=== PATIENT | female | born 1940 | race African-American/Black ===

== ENCOUNTER 2016-09-29 07:13 | Observation (INO) ==
[~2016-09-29 07:13] MED LIST: SODIUM CHLORIDE 0.45% 1,000 ML IV SCH
[2016-09-29] MEDS ORDERED: MIDAZOLAM 2 MG/2 ML VIAL IV ONE (07:40)
[2016-09-29 07:53] LABS: Basophils % 0.3 % (0.0-0.8); Eosinophils # 0.1 10*3/uL (0.0-0.87); Eosinophils % 1.7 % (0.00-10.9); Hematocrit 43.5 VOL% (35.7-47.0); Hemoglobin 15.2 GM/DL (12.0-16.0); Immature Granulocytes % 0.3 %; Immature Granulocytes Absolute 0.01 #; Lymphocytes # 1.5 10*3/uL (1.4-4.0); Lymphocytes % 43.1 % (21.3-54.2); Mean Corpuscular HGB Conc 34.9 GM/DL (32-36); Mean Corpuscular Hemoglobin 29 PG (27-34); Mean Corpuscular Volume 81.8 FL (87-102); Mean Platelet Volume 11.4 FL (9.6-12.0); Monocytes # 0.5 10*3/uL (0.11-0.8); Monocytes % 14.4 % (1.7-12.7); Neutrophils # 1.4 10*3/uL (1.4-7.4); Neutrophils % 40.2 % (38.7-73.9); Platelet Count 199 T/CUMM (130-400); Red Blood Count 5.32 MC/CUMM (3.8-5.5); Red Cell Distribution Width 12.9 % (9.3-17.3); White Blood Count 3.5 T/CUMM (4-12)
[2016-09-29 08:03] LABS: PT Patient Result 10.7 SECS
[2016-09-29] MEDS ORDERED: fentaNYL 100 MCG/2 ML VIAL IV ONE (08:15)
[2016-09-29] MEDS ORDERED: DIAZEPAM 5 MG TABLET PO ONE (08:59)
--- NOTE | 2016-09-29 09:00 | IR History and Physical Update ---
IR Pre-Procedure - History and Physical H&P was reviewed, the patient examined and there: are no changes in the patients condition since last H&P was completed. Reason for procedure:: right renal lesion possible carcinoma - Dictation Physical: refer to scanned H&P - Physical Exam Vital Signs: Last Vital Signs Temp 97.1 F L 09/29/16 07:51 Pulse 55 L 09/29/16 07:51 Resp 20 09/29/16 07:51 BP 139/90 09/29/16 07:51 Pulse Ox 100 09/29/16 07:51 Mental Status: alert and oriented Heart: regular rate and rhythm Lung: clear to auscultation Abdomen: within normal limits - Sedation IR anesthesia plan for sedation: none ASA Class: II Airway Assessment: Class III: Soft palate, base of uvula visible - Risks Risks: Procedures explained. Risks discussed include, but not limited to, the following:[ bleeding, infection, injury to adjacent strucutres] All questions answered. The following alternatives were discussed:[ none] Risks and benefits discussed with: patient Consent obtained from: patient Assessment and Plan - Time spent with patient Time spent with patient: Less than 30 minutes
[2016-09-29] MEDS ORDERED: DIAZEPAM 5 MG TABLET ONE (09:17)
[2016-09-29] MEDS ORDERED: MORPHINE 2 MG/1 ML SYRINGE IV STA ×2 (12:59→13:32)
[2016-09-29] MEDS ORDERED: ONDANSETRON 4 MG/2 ML VIAL IV STA (13:00)
[2016-09-29] MEDS ORDERED: MORPHINE 10 MG/1 ML VIAL ONE (13:01)
[2016-09-29 13:51] LABS: Hematocrit 37.3 VOL% (35.7-47.0); Hemoglobin 12.9 GM/DL (12.0-16.0)
--- NOTE | 2016-09-29 13:55 | Post Interventional Procedure ---
Pre-op diagnosis: right renal complex cyst/mass Post-op diagnosis: same Procedure: CT guided renal mass biopsy Contrast: none Flouroscopy: none Radiologist: Pawel Cadena Anesthesia: local Specimens: other (three 18 ga cores sent to path) Estimated blood loss: minimal (less than 5 mL) Complications: none Condition: stable Description/Findings: complex partially calcified lesion in the right kidney was targeted for biopsy 3 cores obtained and no significant bleeding following the biopsy patient tolerated well Assessment and Plan - Time spent with patient Time spent with patient: Less than 30 minutes
--- NOTE | 2016-09-29 13:56 | Event Note ---
patient having some increasing pain and nausea - treated with meds but not improving yet waiting on stat H/H and will rescan if needed
--- NOTE | 2016-09-29 14:00 | CT Report ---
CT biopsy renal RT Clinical Information: Complex renal cyst/mass right kidney Physician: Dr. Cadena Technique: Informed consent was obtained from the patient. Full explanation of the nature of the procedure, alternatives and risks were discussed, including risks of bleeding, infection and potential inability to diagnose with needle technique. Adjacent vascular and organ injury were also fully discussed. She expressed understanding and a desire to proceed. Formal timeouts were performed, per protocol. Local anesthesia only was used for the procedure. The partially calcified solid appearing mass within the lower pole the right kidney wasn't visualized on the CT guided localization of the target lesion was performed. Under real time guidance, 3 total core biopsies were obtained using an 18-gauge system and submitted in formalin. Follow-up imaging demonstrated no evidence of pneumothorax, hemorrhage or other immediate complication. Estimated blood loss less than 5 cc. Total number of images for this study: 121 Conclusion: Technically successful CT guided right renal lesion biopsy as detailed above PROCEDURE INTERPRETED AT [facility], [place] DEPARTMENT OF RADIOLOGY Final Report Signed by: Paewl Cadena
[2016-09-29] MEDS ORDERED: HYDROmorphone 2 MG/1 ML VIAL IV PRN (14:56)
[2016-09-29] MEDS ORDERED: ONDANSETRON 4 MG/2 ML VIAL IV ONE (14:57)
[2016-09-29] MEDS ORDERED: HYDROmorphone 2 MG/1 ML VIAL ONE (15:24)
[2016-09-29] MEDS ORDERED: ONDANSETRON 4 MG/2 ML VIAL ONE (15:24)
[2016-09-29] MEDS: HYDROmorphone 2 MG/1 ML VIAL IV PRN (15:35)
[2016-09-29] MEDS: SODIUM CHLORIDE 0.45% 1,000 ML IV SCH (15:45)
[2016-09-29] MEDS ORDERED: DEXTROSE 50% 25 GM/50 ML SYRINGE IV PRN (15:47)
[2016-09-29] MEDS ORDERED: GLUCAGON 1 MG VIAL IM PRN (15:47)
--- NOTE | 2016-09-29 16:00 | CT Report ---
CT abdomen wo con Indication: Right flank pain following right renal lesion biopsy Comparison: CT images from the biopsy dated 09/29/2016 at 10:30 AM. Technique: CT of the abdomen was performed without administration of intravenous contrast. Coronal and sagittal reformatted images were additionally created and submitted for review. The total DLP is 146.2 mGy*cm. Dose reduction: This CT exam was performed using one or more of the following dose reduction techniques: Automated exposure control, automated adjustment of the mA and/or KV according to patient size, or use of iterative reconstruction technique. Findings: Minimal posterior basilar atelectatic changes are noted bilaterally. No significant pleural or pericardial effusion. ABDOMEN: Liver/Gallbladder: Unenhanced appearances within normal limits. No biliary ductal dilatation. No gallstones. Cholecystectomy clips noted. Spleen: No acute findings. Pancreas: No acute findings. Adrenals: Within normal limits in appearance. Kidneys: Partially calcified lesion within the inferior pole the right kidney is again noted. There is minimal stranding within the right retroperitoneal/perirenal fat, consistent with a very mild degree of postbiopsy hemorrhage. Additionally, there is slight dilatation of the right renal collecting system and proximal ureter when compared to the prior studies, which is nonspecific on this noncontrast-enhanced study but may represent minimal bleeding into the collecting system. Left kidney appears grossly unremarkable with renal cortical irregularity likely from scarring but no hydronephrosis. Bowel/mesentery: Small bowel is nondilated. No free fluid/air within the abdomen. No mesenteric adenopathy. Colon appears grossly unremarkable for noncontrasted study. Retroperitoneum: No evidence of aortic aneurysm. Minimal scattered atherosclerotic plaque. BONES: No acute or suspicious osseous abnormalities are identified. Mild degenerative changes noted. IMPRESSION: 1. Postbiopsy changes are suspected about the right kidney with minimal perirenal/perinephric stranding likely representing a minimal degree of postbiopsy hemorrhage. There is no significant perirenal hematoma.. Also noted is mild dilatation of the right renal collecting system and proximal right ureter which appears new and may be related to hemorrhage into the collecting system and along the ureter. This will be assessed clinically. 2. No other acute abnormality in the abdomen. 09/29/2016 3:52 PM PROCEDURE INTERPRETED AT [facility] [place] DEPARTMENT OF RADIOLOGY Final Report Signed by: Pawel Cadena
--- NOTE | 2016-09-29 17:33 | Event Note ---
small drop in H/H with some hematuria which is common after renal biopsy - will continue to watch this over night and repeat CBC in AM slight improvement in pain control on dilaudid - will continue overnight C/S to Hospital medicine for assistance with diabetes, hypertension and other medical issues
--- NOTE | 2016-09-29 17:47 | Hospitalist Consult Note ---
<Neo Razo - Last Filed: 09/29/16 17:58> Assessment and Plan (1) Diabetes Status: Acute Assessment and plan: accuchecks achs. ssi. hbg a1c in am. Current Visit: No (2) Hypertension Status: Acute Assessment and plan: Monitor blood pressure. Current Visit: No (3) Nausea Status: Acute Assessment and plan: prn zofran. Current Visit: No History of Present Illness - Data of Consult Consult date: 09/29/16 - Consult Narrative Reason for consult: medical management History of present illness: Ms. Alonzo is a 76 year old black female with a history of dm and dylipidemia that presented today for a biopsy of renal cysts. This biopsy was performed by Dr. Cadena. Pt. tolerated the procedure well but post procedure pt has been having issues with pain, nausea, and vomiting. Hospitalist service was consulted to manage patient medically overnight. Pt. was seen and examined with patient's daughter present at the bedside. Labs and chart reviewed. Presently, pt denies pain but is still nauseous and has experienced vomiting. Pt. is hypertensive also. Pt. will be given zofran IV for management. We will also initiate SSI and accuchecks for diabetes. We appreciate your consult and we will follow along with you. CC: Pawel Cadena MD - Home Medications and Allergies Home Medications: Home Medications Medication Instructions Recorded Confirmed Type Donepezil [Aricept] 10 mg PO DAILY 04/18/15 09/29/16 History Simvastatin [Zocor] 20 mg PO DAILY 04/18/15 09/29/16 History Memantine [Namenda] 10 mg PO BEDTIME 09/17/16 09/29/16 History Omeprazole [Prilosec] 20 mg PO DAILY 09/17/16 09/29/16 History Rosiglitazone Maleate [Avandia] 4 mg PO DAILY 09/17/16 09/29/16 History Simethicone [Bicarsim] 80 mg PO DIRECTED PRN 09/17/16 09/29/16 History Sitagliptin Phosphate [Januvia] 50 mg PO DAILY 09/17/16 09/29/16 History Allergies/Adverse Reactions: Allergies Allergy/AdvReac Type Severity Reaction Status Date / Time Iodinated Contrast Media - AdvReac Intermediate Syncope/Wea Verified 09/29/16 07 :34 Oral and kness [Iodinated Contrast Media - IV Dye] Medical,Surgical,& Family Hx - Medical History Neurology: History of: Dementia No history of: Seizures HEENT: History of: Eye Problem, Dental Problems Endocrine: History of: Diabetes Mellitus (NIDDM) Renal: History of: Renal Problems (Renal Cyst) Gastrointestinal: History of: GI Problems (renal cysts) - Surgical History Abdominal Surgeries: Surgical HX of: Abdominal Surgery, Cholecystectomy Reproductive Surgeries: Surgical HX of;: Section, Gynecologic Surgery, Hysterectomy - Family History Family History: Reports;: Family Hypertension (SISTER) - Social History Smoking Status: Never smoker Frequency of Alcohol Use: None Type of Drug Use: None Lives With:: Children Functional capacity: independent ambulation - Constitutional Constitutional: Present: weakness. Absent: chills, fever(s) - EENT Eyes: Absent: requires corrective lense Ears: Present: decreased hearing. Absent: ear discharge Nose, mouth and throat: Absent: headache(s) - Cardiovascular Cardiovascular: Absent: chest pain at rest, dyspnea on exertion, edema - Respiratory Respiratory: Absent: cough, dyspnea - Gastrointestinal Gastrointestinal: Present: abdominal pain, nausea, vomiting - Genitourinary Genitourinary: Absent: difficulty urinating - Neurological Neurological: Present: memory loss. Absent: dizziness - Psychiatric Psychiatric: Present: memory loss. Absent: confusion - Endocrine Endocrine: Present: fatigue. Absent: cold intolerance - Hematologic/Lymphatic Hematologic/Lymphatic: Absent: easy bleeding Exam - Constitutional Vitals: Period Temp Pulse Resp BP Sys/Calvillo Pulse Ox Last 24 Hr 97.1 F-97.2 F 45-59 12-21 120-178/77-98 99-100 General appearance: normal weight, no acute distress - Head Head exam: Present: normal inspection, normocephalic - Eye Eye exam: Present: EOMI Pupils: Present: JOY - Respiratory Respiratory exam: Present: clear to auscultation bilaterally. Absent: wheezes - Cardiovascular Cardiovascular exam: Present: regular rate and rhythm - GI/Abdominal GI/Abdominal exam: Present: normal bowel sounds, tenderness, soft - Extremities Exam Extremities exam: Present: normal capillary refill. Absent: edema - Neurological Exam Neurological exam: Present: alert, oriented X3 - Psychiatric Psychiatric exam: Present: normal affect, normal mood - Skin Skin exam: Present: normal color, warm, dry Results - Labs CBC & BMP: 09/29/16 13:00 Specialty Discharge - Follow Up or Referrals <Jennifer Barrett - Last Filed: 09/29/16 18:48> Assessment and Plan (1) Renal mass Status: Acute Assessment and plan: s/p right kidney biopsy, monitor hgb for post biopsy hemorrhage Current Visit: Yes (2) Hypertension Status: Acute Current Visit: No (3) Diabetes Status: Acute Current Visit: No History of Present Illness - Consult Narrative History of present illness: Ms. Alonzo is a 76 year old female patient seen and examined. Reporting pain over bladder, feels full will ask nursing to insert melgoza. Family will stay overnight. no history of htn CC: Pawel Cadena MD Medical,Surgical,& Family Hx - Social History Marital Status: Single Exam - Constitutional Vitals: Period Temp Pulse Resp BP Sys/Calvillo Pulse Ox Last 24 Hr 97.1 F-97.2 F 45-59 12-21 120-178/77-98 99-100 - Eye Eye exam: Absent: scleral icterus Pupils: Present: normal accommodation - ENT ENT exam: Present: normal exam, normal external ear exam - Neck Neck exam: Absent: lymphadenopathy, thyromegaly - Cardiovascular Cardiovascular exam: Absent: systolic murmur - Neurological Exam Neurological exam: Present: reflexes normal. Absent: motor sensory deficit Results - Labs CBC & BMP: 09/29/16 13:00 Lab Results: I have reviewed the past 24 hour labs - Diagnostic Findings Procedure: CT Abdomen and Pelvis: report reviewed by me ( Postbiopsy changes are suspected about the right kidney with)
[2016-09-29 19:21] LABS: Apearance,Urine CLOUDY (Clear); Bilirubin,Urine Negative (Negative); Blood, Urine Moderate mg/dL (Negative); Glucose,Urine (UA) 50 mg/dL (Negative); Ketones,Urine Negative (Negative); Nitrite,Urine Negative (Negative); Protein,Urine 100 MG/DL; RBC,Urine 6947 /HPF (0-4); Urine Color Amber (Yellow); Urine Urobilinogen < 2.0 EU/DL (0.2-1.0)
[2016-09-29] MEDS ORDERED: MEMANTINE 10 MG TABLET PO SCH (21:00)
[2016-09-29] MEDS: INSULIN LISPRO 100 UNIT/ML SUBCUT SCH (21:06)
[2016-09-30] MEDS: HYDROmorphone 2 MG/1 ML VIAL IV PRN (00:16)
[2016-09-30] MEDS: ONDANSETRON 4 MG/2 ML VIAL IV PRN ×2 (00:16→11:34)
[2016-09-30] MEDS ORDERED: HYDROmorphone 2 MG/1 ML VIAL IV ONE (02:37)
[2016-09-30] MEDS: SODIUM CHLORIDE 0.45% 1,000 ML IV SCH (05:12)
[2016-09-30 07:32] LABS: Basophils % 0.2 % (0.0-0.8); Eosinophils % 0.2 % (0.00-10.9); Hematocrit 40.2 VOL% (35.7-47.0); Immature Granulocytes % 0.3 %; Immature Granulocytes Absolute 0.02 #; Lymphocytes # 0.6 10*3/uL (1.4-4.0); Lymphocytes % 9.5 % (21.3-54.2); Mean Corpuscular HGB Conc 34.8 GM/DL (32-36); Mean Corpuscular Hemoglobin 29 PG (27-34); Mean Platelet Volume 12.7 FL (9.6-12.0); Monocytes # 0.5 10*3/uL (0.11-0.8); Monocytes % 8.2 % (1.7-12.7); Neutrophils # 5.4 10*3/uL (1.4-7.4); Neutrophils % 81.6 % (38.7-73.9); Platelet Count 174 T/CUMM (130-400); Red Cell Distribution Width 12.8 % (9.3-17.3); White Blood Count 6.6 T/CUMM (4-12)
[2016-09-30 07:54] LABS: Hypochromasia Slight
[2016-09-30 08:00] LABS: Potassium 4.7 MMOL/L (3.5-5.1)
--- NOTE | 2016-09-30 08:30 | Discharge Summary ---
Hospital Course - Hospital Course Hospital Course: Ms. Alonzo was seen on 09/29/2016 for biopsy of a right renal mass. Following the biopsy, she developed significant pain with nausea vomiting and abdominal discomfort. Follow-up imaging and lab work demonstrates minimal bleeding, likely within the collecting system with some hematuria noted. This resolved and she otherwise did well with overnight pain control and Matute catheter placement. It seems like today she is much better spirits with limited pain. She has not been requesting significant pain medicine overnight. Of note, there is bloody urine within the Matute bag with several clots but the urine is otherwise not discolored. We will remove the Matute catheter today and see if she progresses well, she will likely be discharged this afternoon. She has primary care follow up and hospitalist will potentially set of outpatient physical therapy for rehabilitation. She also has follow-up with Dr. Steele pending the results of the renal mass biopsy. Patient was counseled to continue light duty for 2 additional base. Hold aspirin for at least 48 hours. No other home medication changes. - Time spent with patient Time with patient DS: Less than 30 minutes Specialty Discharge - Follow Up or Referrals Discharge Plan - Discharge Data Disposition: Disch To Home/Self Care Condition at Discharge: Stable Discharge Diet: advance to your usual diet Activity: resume usual activities as tolerated Hygiene: may shower Weight Bearing at Discharge: full weight bearing Driving: not for (24 hours) Contact your physician if you experience:: fever over 101, Difficulty voiding, Nausea/Vomiting, Bleeding, pain uncontrolled by pain medications - Discharge Medications No Action Donepezil [Aricept] 10 mg PO DAILY Simvastatin [Zocor] 20 mg PO DAILY Memantine [Namenda] 10 mg PO BEDTIME Rosiglitazone Maleate [Avandia] 4 mg PO DAILY Omeprazole [Prilosec] 20 mg PO DAILY Simethicone [Bicarsim] 80 mg PO DIRECTED PRN PRN Reason: Pain Sitagliptin Phosphate [Januvia] 50 mg PO DAILY - Follow Up or Referral - Forms/Instructions Instructions: Percutaneous Kidney Biopsy (ANA LUISA), Ron Biopsy by Radiology Exam - Constitutional Vitals: Period Temp Pulse Resp BP Sys/Calvillo Pulse Ox Last 24 Hr 97.1 F-97.8 F 45-62 12-21 119-178/71-98 94-100 General appearance: normal weight - Eye Eye exam: Present: EOMI - Respiratory Respiratory exam: Present: clear to auscultation bilaterally - Cardiovascular Cardiovascular exam: Present: regular rate and rhythm - GI/Abdominal GI/Abdominal exam: Present: normal bowel sounds. Absent: distended, firm, guarding - Back Exam Back exam: Absent: CVA tenderness (L), CVA tenderness (R) - Neurological Exam Neurological exam: Present: alert, oriented X3 - Psychiatric Psychiatric exam: Present: normal affect, normal mood - Skin Skin exam: Present: normal color, dry Discharge Results Procedures and tests throughout hospitalization: Pending Orders 09/30/16 04:56 Hemoglobin A1C IN AM Labs on day of discharge: Labs from last 24 hours 09/30/16 09/30/16 09/30/16 08:12 04:56 04:56 WBC 6.6 D RBC 4.90 Hgb 14.0 Hct 40.2 MCV 82.0 L MCH 29 MCHC 34.8 RDW 12.8 Plt Count 174 MPV 12.7 H Neut % (Auto) 81.6 H Lymph % (Auto) 9.5 L [place] % (Auto) 8.2 Eos % (Auto) 0.2 Baso % (Auto) 0.2 Neut # (Auto) 5.4 Lymph # (Auto) 0.6 L [place] # (Auto) 0.5 Eos # (Auto) 0.0 Baso # (Auto) 0.0 Immature Gran % 0.3 Nucleated RBC % 0.0 Immature Gran # 0.02 Nucleated RBCs # 0.00 Immature Plt Fraction 6.3 Hypochromasia Slight Sodium 136 Potassium 4.7 Chloride 104 Carbon Dioxide 24 Anion Gap 12.7 BUN 14 Creatinine 1.30 H GFR Calculation 47 BUN/Creatinine Ratio 10.00 Glucose 169 H POC Glucose 147 H Calculated Osmolality 276.0 Calcium 9.0 Urine Color Urine Appearance Urine pH Ur Specific [place] Urine Protein Urine Glucose (UA) Urine Ketones Urine Blood Urine Nitrate Urine Bilirubin Urine Urobilinogen Urine Leukocytes Urine RBC Ur Culture Indicated? 09/29/16 09/29/16 09/29/16 19:46 19:33 18:36 WBC RBC Hgb 15.5 D Hct MCV MCH MCHC RDW Plt Count MPV Neut % (Auto) Lymph % (Auto) [place] % (Auto) Eos % (Auto) Baso % (Auto) Neut # (Auto) Lymph # (Auto) [place] # (Auto) Eos # (Auto) Baso # (Auto) Immature Gran % Nucleated RBC % Immature Gran # Nucleated RBCs # Immature Plt Fraction Hypochromasia Sodium Potassium Chloride Carbon Dioxide Anion Gap BUN Creatinine GFR Calculation BUN/Creatinine Ratio Glucose POC Glucose 167 H Calculated Osmolality Calcium Urine Color Silvia Urine Appearance Cloudy Urine pH 6.0 Ur Specific [place] 1.010 Urine Protein 100 Urine Glucose (UA) 50 Urine Ketones Negative Urine Blood Moderate Urine Nitrate Negative Urine Bilirubin Negative Urine Urobilinogen < 2.0 H Urine Leukocytes Negative Urine RBC 6947 Ur Culture Indicated? Not indicated 09/29/16 09/29/16 16:16 13:00 WBC RBC Hgb 12.9 D Hct 37.3 MCV MCH MCHC RDW Plt Count MPV Neut % (Auto) Lymph % (Auto) [place] % (Auto) Eos % (Auto) Baso % (Auto) Neut # (Auto) Lymph # (Auto) [place] # (Auto) Eos # (Auto) Baso # (Auto) Immature Gran % Nucleated RBC % Immature Gran # Nucleated RBCs # Immature Plt Fraction Hypochromasia Sodium Potassium Chloride Carbon Dioxide Anion Gap BUN Creatinine GFR Calculation BUN/Creatinine Ratio Glucose POC Glucose 186 H Calculated Osmolality Calcium Urine Color Urine Appearance Urine pH Ur Specific [place] Urine Protein Urine Glucose (UA) Urine Ketones Urine Blood Urine Nitrate Urine Bilirubin Urine Urobilinogen Urine Leukocytes Urine RBC Ur Culture Indicated? DS: Provider Date of admission: 09/29/16 15:47 Primary care physician: Marti Sanderson DO Attending physician on admission: Pawel Cadena MD Consults: 09/29/16 16:07 Consult to Physician [CONS] Routine Comment: Consulting Provider: Consult to Specialist Group: Hospitalist When should Consulting Provider be notified: Now Discharging clinician: Pawel Cadena MD Expected date of discharge: 09/30/16
[2016-09-30] MEDS: INSULIN LISPRO 100 UNIT/ML SUBCUT SCH ×2 (08:44→11:29)
[2016-09-30] MEDS ORDERED: [UNRECOGNIZED DRUG - OTHER] PO SCH (09:00)
[2016-09-30] MEDS ORDERED: sitaGLIPtin 25 MG TABLET PO SCH (09:00)
[2016-09-30] MEDS ORDERED: DONEPEZIL 10 MG TABLET PO SCH (09:00)
[2016-09-30] MEDS ORDERED: SIMVASTATIN 10 MG TABLET PO SCH (09:00)
--- NOTE | 2016-09-30 10:58 | Hospitalist Progress Note ---
Assessment and Plan (1) Renal mass Status: Acute Assessment and plan: s/p right kidney biopsy, hemoglobin stable, pain improved. D/c melgoza and discharge home with home health with pt Current Visit: Yes (2) Diabetes Status: Acute Assessment and plan: hgb a1c 7, would not recommend restarting avandia but can cont januvia Current Visit: No Hospitalist: Subjective Interval history: Patient feels much better today. She was retaining about 300 mL's of fluid in her bladder. She does have blood in her urine which is expected after a renal biopsy. Her hemoglobin has stabilized at 14. She will be discharged home by interventional radiology today. I would not recommend resuming her Avandia as Avandia is no longer being used due to problems with heart failure. Her hemoglobin A1c is 7 Exam - Constitutional Vitals: Period Temp Pulse Resp BP Sys/Calvillo Pulse Ox Last 24 Hr 97.1 F-97.8 F 45-62 18-21 108-178/61-98 94-100 Exam: Heart Rate-[RRR] Lungs-[CTAB] GI-[+bs soft, NT] Ext-[no edema] Neuro [Motor 5/5] psych [normal mood and affect] General [no acute distress] Results - Labs CBC & BMP: 09/30/16 04:56 09/30/16 04:56 Lab Results: I have reviewed the past 24 hour labs Specialty Discharge - Follow Up or Referrals
[2016-09-30 12:15] VITALS: BP 134/87
--- NOTE | 2016-10-07 18:18 | Pathology Report from [facility] ---
[facility] ACCESSION # : [id number] PATIENT NAME : Jaki Alonzo ORDERING DR : Pawel Cadena MD CLINICAL HX: Right renal cyst lesion POST-OP DX: Same SPECIMEN INFO: Right renal cyst lesion bx x 4 GROSS DESCRIPTION: The specimen is received in formalin labeled with the patients name JAKI ALONZO and consists of multiple red-white fragments of soft tissue collectively measuring 0.8 x 0.8 cm. Submitted in one cassette. 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 See note.Note: This is a distinct entity separate from clear cell RCC and separate from papillary RCC. Although, to date, once resected, none of these lesions have metastasized; longer follow up with a larger number of cases s needed before its biologic behavior can be definitively determined (Am J Surg Pathol 2008; 32: 1239-45). Stains were performed at [facility]). Show that the tumor cells are positive for CK7 and CAIX. Supporting the above diagnosis. COLLECTED DATE: 09/29/2016 [facility] REPORT DATE: 10/07/2016 ELECTRONICALLY SIGNED BY: Ladan Manzo M.D. 10/07/2016 - 7:20:03 JOSUÉ
== END 2016-09-30 14:18 | disposition home or self-care (01) ==
LOC: N.RAD 07:13 → N.SDSINP 07:13 → N.4E 16:37
PROVIDERS: ADMIT Radiology Diagnostic Radiology; ATTEND Radiology Diagnostic Radiology

== ENCOUNTER 2016-11-19 05:35 | Inpatient (IN) ==
[~2016-11-19 05:35] MED LIST changes: +ACETAMINOPHEN 325 MG TABLET PO PRN; +MAGNESIUM HYDROXIDE SUSP 30 ML UDCUP PO PRN; +MORPHINE 2 MG/1 ML SYRINGE IV PRN; +ONDANSETRON 4 MG/2 ML VIAL IV PRN; -SODIUM CHLORIDE 0.45% 1,000 ML IV SCH
[2016-11-19] MEDS ORDERED: ALVIMOPAN 12 MG CAPSULE ONE (05:53)
[2016-11-19] MEDS ORDERED: SODIUM CHLORIDE 0.9% 50 ML IV ONE (05:53)
[2016-11-19] MEDS ORDERED: cefTRIAXone 1,000 MG VIAL ONE (05:53)
[2016-11-19] MEDS ORDERED: FAMOTIDINE 20 MG TABLET PO ONE (05:54)
[2016-11-19] MEDS ORDERED: LORazepam 0.5 MG TABLET PO ONE (05:54)
[2016-11-19] MEDS ORDERED: ALVIMOPAN 12 MG CAPSULE PO ONE (06:00)
[2016-11-19] MEDS ORDERED: LORazepam 0.5 MG TABLET ONE (06:23)
[2016-11-19] MEDS ORDERED: FAMOTIDINE 20 MG TABLET ONE ×2 (06:24→20:12)
[2016-11-19] MEDS ORDERED: LACTATED RINGERS 1,000 ML IV SCH (06:30)
[2016-11-19] MEDS ORDERED: INDOCYANINE GREEN 25 MG VIAL IV ONE (06:38)
[2016-11-19] MEDS ORDERED: LIDOCAINE 2% 5 ML VIAL ONE (07:07)
[2016-11-19] MEDS ORDERED: ROCURONIUM 100 MG/10 ML VIAL IV ONE (07:07)
[2016-11-19] MEDS ORDERED: hydrALAZINE 20 MG/1 ML VIAL ONE (07:07)
[2016-11-19] MEDS ORDERED: DEXAMETHASONE 10 MG/1 ML VIAL ONE (07:07)
[2016-11-19] MEDS ORDERED: MANNITOL 12.5 GM/50 ML VIAL IV ONE (07:07)
[2016-11-19] MEDS ORDERED: GLYCOPYRROLATE 0.4 MG/2 ML VIAL ONE (07:07)
[2016-11-19] MEDS ORDERED: ESMOLOL 100 MG/10 ML VIAL IV ONE (07:07)
[2016-11-19] MEDS ORDERED: PROPOFOL 200 MG/20 ML VIAL IV ONE (07:07)
[2016-11-19] MEDS ORDERED: NEOSTIGMINE 10 MG/10 ML VIAL ONE (07:07)
[2016-11-19] MEDS ORDERED: ONDANSETRON 4 MG/2 ML VIAL ONE ×2 (07:07→12:35)
[2016-11-19 08:57] LABS: Apearance,Urine CLEAR (Clear); Bilirubin,Urine Negative (Negative); Blood, Urine Negative (Negative); Glucose,Urine (UA) Negative (Negative); Ketones,Urine Negative (Negative); Mucus,Urine Occasional /LPF (Occasional); Nitrite,Urine Negative (Negative); Protein,Urine Negative; RBC,Urine <1 /HPF (0-4); Squamous Epithelial Cell,Urine Occasional /HPF (0-10); Urine Color Yellow (Yellow); Urine Specific Gravity 1.008 (1.001-1.035); Urine Urobilinogen < 2.0 EU/DL (0.2-1.0); WBC,Urine <1 /HPF (0-6)
--- NOTE | 2016-11-19 11:57 | Anesthesia Procedures ---
Anesthesia Procedures - Central Venous Insert Monitors Applied: pulse oximetry, EKG, BP cuff, oxygen via MSBT: pulse oximetry, EKG, BP cuff, oxygen via Procedure: after sterile technique was performed as outlined above, , ultrasound guidance was used to identify vessel, 1.5 % lidocaine used to numb skin, 16G introducer needle was passed into vessel under direct visualizatio, 7fr double lumen catheter was passed over guidewire without difficulty, triple lumen catheter was passed over guidewire without difficulty, catheter sutured into place and the ports flushed with NS/hepflush, sterlie dressing applied including the antibiotic disc, vital signs were stable throughout procedure, no apparent complications were noted, CXR to be obtained and read Ultrasound used: identify patency vessel, visualize needle entry to vessel
--- NOTE | 2016-11-19 12:23 | Operative Note ---
Date of procedure: 11/19/16 Pre-op diagnosis: Renal cell carcinoma of the right kidney Post-op diagnosis: same Procedure: 76-year-old black female with known renal mass there is an endophytic and calcified. Biopsy-proven renal cell carcinoma. I discussed our options. I told her we will attempt to potentially do a partial or a heminephrectomy but a total nephrectomy name may need to be done. This procedure was explained at length and in detail. Risks, complications, outcomes, sequelae, prognosis and alternative therapy was thoroughly discussed. Patient and family understood this and agreed to proceed. Patient's brought to the operative suite placed table in supine position and given a general endotracheal anesthetic she was then rolled into the left lateral decubitus position secured to the table with a beanbag and straps and then prepared and draped in the usual manner for a robotic assisted partial possible total nephrectomy. She is rotated outwardly slightly. Formal timeout was performed. I compared the CT and I felt that I would place the camera port right near the hilum. This is a high kidney for a right kidney and she does have a big liver. Small incision is created at this site and then [place] to use dissect down to the fascia. Cautery was used for hemostasis. Towel clips were used to tent up the abdominal wall and a Veress needle was used to enter the abdominal cavity. Pneumoperitoneum was obtained. The varus position was confirmed by the to click and saline drop test. After about 2-1/2-3 L of CO2 in the peritoneal cavity Veress needle was removed 8 mm trocar was placed in this. Camera was inserted and intra-abdominal contents are noted. There is some adhesions of the right colon going to be have to be taken down. The kidney was disappointingly higher than I imagine and the liver was larger than I imagine and so I pretzel retractor will have to be placed. #1 arm a #2 arm was then placed about 8 cm lateral to the camera port and somewhat more lateral. There is a placed under direct vision. Assistance port was placed between number of the camera and the right hand port at about 3 or 4 inches below this. Again this was done under direct vision. The proximal retractor 5 mm port was placed and then the robot was docked. I broke scrub and went to the console. The pretzel retractor was then used to retract the liver up. Sayda forceps in the left and monopolar scissors in the right kidney was then dissected out. Gerota's was entered and the kidney was dissected out from its attachments in the lower pole. The ureter was identified and kept away from the resecting area. The attachments were divided posteriorly laterally and up to the upper pole. This kidney has a unusual configuration in the upper pole swings around like almost a horseshoe.. The hilum was then dissected out the vein and the artery were identified were diet were dissected free and a vessel loop was placed around each. The dropping probe for the ultrasound was placed in an this kidney was examined. The upper portion of this lesion was marked and I felt that if I did a heminephrectomy that they would be very little kidney left. If I did a partial nephrectomy of the lesion my fear would be a positive margin. And it is in the middle near the hilum. At this point time I elected to perform a nephrectomy. The ureter was doubly clipped and divided dissection was continued up the lower pole to the hilum where the vein and artery were then stapled there were multiple other veins that were stapled. The remainder attachments were freed up with sharp dissection and the kidney was then and placed in the right lower quadrant for removal later. But vessels were cleared up there was one bleeding vein that was oversewn with 2 oh silk. FloSeal was placed on the vessels and on top of this Tisseel was placed. Pneumoperitoneum was released and the ports were removed. The robot was undocked. The #1 port in the #2 port of the camera port was used to make the incision to remove the kidney. Scalpel was used to make the incision and cautery was used to go down divide the muscles. The abdominal wall was tented up with retractor and the kidney was then grasped and removed. A piece of Gelfoam was then placed up into the renal fossa. Hemostasis was then checked with cautery. This wound was closed interrupted #1 Vicryl. The 12 mm system port was closed with a Monocryl [id number]. All wounds were checked for hemostasis and all all wounds were closed at the skin with skin clips. Sterile dressings were placed on the wound. Patient tolerates procedure well and rolled to the supine position and extubated which he tolerated this well. She is then sent to recovery room in stable condition. All sponge, needle and instrument counts correct 2. Anesthesia: GETA Surgeon / Physician: Jose Angel Steele Estimated blood loss: other (900 cc) Specimens: other (Right kidney) Condition: stable Disposition: PACU Results - Labs CBC & BMP: 11/19/16 06:24 Discharge Plan - Discharge Medications No Action Donepezil [Aricept] 10 mg PO DAILY Simvastatin [Zocor] 20 mg PO DAILY Memantine [Namenda] 10 mg PO BEDTIME Omeprazole [Prilosec] 20 mg PO DAILY Simethicone [Bicarsim] 80 mg PO DIRECTED PRN PRN Reason: Pain Sitagliptin Phosphate [Januvia] 25 mg PO DAILY - Follow Up or Referral - Forms/Instructions
[2016-11-19] MEDS ORDERED: HYDROmorphone 2 MG/1 ML VIAL ONE (12:35)
[2016-11-19] MEDS: HYDROmorphone 2 MG/1 ML VIAL IV PRN ×4 (12:35→13:14)
[2016-11-19] MEDS: ONDANSETRON 4 MG/2 ML VIAL IV PRN (12:38)
[2016-11-19] MEDS ORDERED: LABETALOL 20 MG/4 ML SYRINGE IV ONE (12:41)
[2016-11-19] MEDS ORDERED: DESFLURANE 1 UNIT/15 MINUTE INH ONE (12:42)
[2016-11-19] MEDS ORDERED: SODIUM CHLORIDE 0.9% 1,000 ML IV ONE (12:43)
[2016-11-19] MEDS ORDERED: LACTATED RINGERS 1,000 ML IV ONE (12:43)
[2016-11-19] MEDS ORDERED: MIDAZOLAM 2 MG/2 ML VIAL ONE (12:43)
[2016-11-19] MEDS ORDERED: ONDANSETRON 4 MG/2 ML VIAL IV PRN (12:43)
[2016-11-19] MEDS ORDERED: SUFentanil 50 MCG/ML AMP ONE (12:43)
[2016-11-19] MEDS ORDERED: HYDROmorphone PCA 30 MG/30 ML SYRINGE IV ONE (12:50)
--- NOTE | 2016-11-19 12:55 | XRay Report ---
XR chest 1V portable Indication: Central line Comparison: Chest x-ray April 18, 2015 Technique: Single frontal view of the chest. Findings: Continued mild cardiomegaly. Right-sided central venous catheter tip projects over the atriocaval junction. Chronic change of the lungs without focal consolidation, pleural effusion, or pneumothorax. Visualized osseous and surrounding soft tissue structures appear grossly unchanged. Old appearing left rib deformities. IMPRESSION: Continued mild cardiomegaly without mela pulmonary edema. PROCEDURE INTERPRETED AT [facility] DEPARTMENT OF RADIOLOGY Final Report Signed by: Dr Giuseppe Vazquez
[2016-11-19] MEDS: HYDROmorphone PCA 30 MG/30 ML SYRINGE IV SCH (12:58)
[2016-11-19 13:07] LABS: Hematocrit 33.3 VOL% (35.7-47.0)
[2016-11-19] MEDS: SODIUM CHLORIDE 0.9% 1,000 ML IV SCH (14:20)
[2016-11-19] MEDS: SODIUM CHLORIDE 0.45% 1,000 ML IV SCH ×2 (14:36→19:31)
[2016-11-19] MEDS: DOCUSATE SODIUM 100 MG CAPSULE PO SCH ×2 (14:37→20:24)
[2016-11-19] MEDS ORDERED: SIMETHICONE CHEW 80 MG TABLET PO PRN (14:57)
--- NOTE | 2016-11-19 16:30 | Internal Med History&Physical ---
Assessment and Plan (1) Status post nephrectomy Status: Acute Current Visit: Yes (2) Diabetes Status: Chronic Current Visit: No Qualifiers: Diabetes mellitus type: type 2 Diabetes mellitus complication status: without complication Diabetes mellitus shelter insulin use: without shelter use Qualified Code(s): E11.9 - Type 2 diabetes mellitus without complications (3) Renal mass Status: Acute Current Visit: Yes History of Present Illness Chief complaint: right nephrectomy History of present illness: Ms. Alonzo is a 76 year old female with history of DM, dyslipidemia, mild dementia/memory loss, who presented to hospital for a scheduled nephrectomy ( right) because of a large renal cell carcinoma mass confirmed with biopsy. She tolerated the procedure well. This patient has had remarkable physical fitness for her age and ran a several mile marathon last year. Home Medications Medication Instructions Recorded Confirmed Type Donepezil [Aricept] 10 mg PO DAILY 04/18/15 11/13/16 History Simvastatin [Zocor] 20 mg PO DAILY 04/18/15 11/13/16 History Memantine [Namenda] 10 mg PO BEDTIME 09/17/16 11/13/16 History Omeprazole [Prilosec] 20 mg PO DAILY 09/17/16 11/13/16 History Simethicone [Bicarsim] 80 mg PO DIRECTED PRN 09/17/16 11/13/16 History Sitagliptin Phosphate [Januvia] 25 mg PO DAILY 09/17/16 11/13/16 History Allergies Allergy/AdvReac Type Severity Reaction Status Date / Time Iodinated Contrast Media - AdvReac Intermediate Syncope/Wea Verified 11/13/16 15 :29 Oral and kness [Iodinated Contrast Media - IV Dye] Medical,Surgical,& Family Hx - Medical History Neurology: History of: Dementia (MILD) No history of: Seizures HEENT: History of: Eye Problem (GLASSES), Dental Problems (FULL SET) Endocrine: History of: Diabetes Mellitus (NIDDM), Dyslipidemia Respiratory: History of: Respiratory Problems (FLU VAC- YES 2015; PNEU VAC-YES?) Renal: History of: Renal (Kidney) Cancer (RT KIDNEY. BX DONE 09/2016), Renal Problems (Renal Cyst) Gastrointestinal: History of: GERD, GI Problems (renal cysts) Other: History of: Anesthesia Reactions (NAUSEA), Cancer (KIDNEY CA.) - Surgical History Abdominal Surgeries: Surgical HX of: Abdominal Surgery, Cholecystectomy, Colonoscopy, EGD Reproductive Surgeries: Surgical HX of;: Section (X1), Gynecologic Surgery, Hysterectomy - Family History Family History: Reports;: Family Hypertension (SISTER) - Social History Smoking Status: Never smoker Frequency of Alcohol Use: None Type of Drug Use: None Functional capacity: independent ambulation - Constitutional Constitutional: Absent: weakness - Cardiovascular Cardiovascular: Absent: chest pain with activity, dyspnea on exertion - Gastrointestinal Gastrointestinal: Absent: diarrhea, nausea, vomiting Exam - Constitutional Vitals: Period Temp Pulse Resp BP Sys/Calvillo Pulse Ox Last 24 Hr 96 F-97.8 F 49-118 16-20 116-178/68-124 99-100 General appearance: no acute distress - Head Head exam: Present: normocephalic - Eye Eye exam: Present: EOMI - Respiratory Respiratory exam: Present: clear to auscultation bilaterally - Cardiovascular Cardiovascular exam: Present: regular rate and rhythm - GI/Abdominal GI/Abdominal exam: Present: soft. Absent: tenderness - Extremities Exam Extremities exam: Absent: edema - Neurological Exam Neurological exam: Present: other (somnolent from anesthesia) - Psychiatric Psychiatric exam: Present: normal mood - Skin Skin exam: Present: warm, dry Results - Labs CBC & BMP: 11/19/16 12:59 11/19/16 06:24 Quality Measures - VTE Contraindication to Pharmacological VTE Prophylaxis: High Risk of Bleeding
[2016-11-19] MEDS: INSULIN REGULAR 100 UNIT/ML SUBCUT SCH ×2 (16:48→20:20)
--- NOTE | 2016-11-19 17:22 | Urology Progress Note ---
Urology - PN: Subj Interval history: Postoperative check. Patient is awake and alert. Having right flank pain as expected. Her H&H in recovery was 1133. She did lose about 900 cc due to the very, very venous nature of the hilum. But her abdomen is soft but expected incisional tenderness. Her vital signs are stable. Patient is stable. Exam - Constitutional Vitals: Period Temp Pulse Resp BP Sys/Calvillo Pulse Ox Last 24 Hr 96 F-98.0 F 49-118 14-20 116-178/68-124 96-100 Results - Labs CBC & BMP: 11/19/16 12:59 11/19/16 06:24
[2016-11-19] MEDS: MEMANTINE 10 MG TABLET PO SCH (20:19)
[2016-11-19] MEDS: FAMOTIDINE 20 MG TABLET PO SCH (20:19)
[2016-11-19] MEDS: ALVIMOPAN 12 MG CAPSULE PO SCH (20:20)
[2016-11-19] MEDS ORDERED: hydrALAZINE 20 MG/1 ML VIAL IV PRN (22:42)
--- NOTE | 2016-11-20 02:37 | Order Completion Report ---
See report scanned to EMR
[2016-11-20] MEDS: SODIUM CHLORIDE 0.9% 1,000 ML IV SCH ×3 (03:25→21:13)
[2016-11-20 04:00] LABS: Calcium 8.6 MG/DL (8.5-10.1); Osmolality,Calculated 278.7 MOS/KG (273-304); Potassium 5.4 MMOL/L (3.5-5.1)
[2016-11-20 04:02] LABS: Troponin I Only < 0.015 NG/ML (0.00-0.045)
[2016-11-20 06:16] LABS: Basophils % 0.1 % (0.0-0.8); Hematocrit 27.1 VOL% (35.7-47.0); Hemoglobin 9.1 GM/DL (12.0-16.0); Immature Granulocytes % 0.4 %; Immature Granulocytes Absolute 0.04 #; Lymphocytes # 0.8 10*3/uL (1.4-4.0); Lymphocytes % 8.8 % (21.3-54.2); Mean Corpuscular HGB Conc 33.6 GM/DL (32-36); Mean Corpuscular Hemoglobin 28 PG (27-34); Mean Corpuscular Volume 83.4 FL (87-102); Mean Platelet Volume 12.1 FL (9.6-12.0); Monocytes % 11.1 % (1.7-12.7); Neutrophils # 7.2 10*3/uL (1.4-7.4); Neutrophils % 79.6 % (38.7-73.9); Platelet Count 144 T/CUMM (130-400); Red Blood Count 3.25 MC/CUMM (3.8-5.5); Red Cell Distribution Width 12.6 % (9.3-17.3); White Blood Count 9.1 T/CUMM (4-12)
--- NOTE | 2016-11-20 08:03 | Anesthesia Post-Op ---
Anesthesia Post OP - Post Ansesthetic Evaluation Patient seen in post op: Yes Resp: within normal limits CV: within normal limits Mental: within normal limits Temp: within normal limits Tyle-Ti-Mdgudkbbm: within normal limits Nausea and Vomiting: within normal limits Pain: within normal limits
--- NOTE | 2016-11-20 08:14 | Urology Progress Note ---
Urology - PN: Subj Interval history: Patient had a restless night. Apparently her dementia was bothering her and she had some sundowning. I explained to the family that this is not uncommon considering the stress of surgery, anesthesia, narcotics. This should improve with time. She does need to start ambulating. I am actually seeing her in the chair. Her blood count did drop. It is 11/12. Is not to the point where we need to transfuse. I will continue the VP OF GLOBAL MARKETING. Advance her diet as tolerated. Exam - Constitutional Vitals: Period Temp Pulse Resp BP Sys/Calvillo Pulse Ox Last 24 Hr 96 F-99.3 F 50-118 14-20 115-178/65-124 96-100 Results - Labs CBC & BMP: 11/20/16 05:50 11/20/16 02:57
[2016-11-20] MEDS ORDERED: sitaGLIPtin 25 MG TABLET PO SCH (09:00)
[2016-11-20] MEDS: PANTOPRAZOLE 40 MG TABLET PO SCH (09:02)
[2016-11-20] MEDS: DOCUSATE SODIUM 100 MG CAPSULE PO SCH ×2 (09:02→21:13)
[2016-11-20] MEDS: SIMVASTATIN 20 MG TABLET PO SCH (09:02)
[2016-11-20] MEDS: DONEPEZIL 10 MG TABLET PO SCH (09:02)
[2016-11-20] MEDS: ALVIMOPAN 12 MG CAPSULE PO SCH ×2 (09:02→21:13)
[2016-11-20] MEDS: INSULIN REGULAR 100 UNIT/ML SUBCUT SCH ×4 (09:03→21:13)
[2016-11-20] MEDS: SODIUM CHLORIDE 0.45% 1,000 ML IV SCH (09:03)
[2016-11-20] MEDS: FAMOTIDINE 20 MG TABLET PO SCH ×2 (09:04→21:13)
[2016-11-20] MEDS: ONDANSETRON 4 MG/2 ML VIAL IV PRN (09:07)
--- NOTE | 2016-11-20 12:25 | Pathology Report from [facility] ---
[facility] [place] [id number] PATIENT NAME : Jaki Beckham ORDERING DR : GINGER REDDING MD CLINICAL HX: Right renal mass POST-OP DX: Same SPECIMEN INFO: Right kidney GROSS DESCRIPTION: The specimen is received in formalin labeled with the patients name JAKI BECKHAM and consists of a kidney measuring 10.8 x 5.7 cm. The ureter measures 4.5 cm. Bisecting the kidney reveals a dilated renal pelvis and renal calices with a 2.5 x 2.2 cm partially calcified yellow-red mass noted in the lower pole. Grossly the mass comes to within 0.7 cm of the renal capsule. No perirenal fat is received with the specimen. Sections submitted: A ureteral and vascular margins, B thru D mass, E representative government relations kidney. 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 SIZE: 2.5 x 2.2 cm. WHO/ISUP GRADE 1 (of 4). MARGINS: Uninvolved. SITE: Lower pole FOCALITY: Unifocal. ANATOMIC EXTENT: Tumor limited to kidney. SARCOMATOID FEATURES: Not identified. RHABDOID FEATURES: Not identified. TUMOR NECROSIS: Not identified. LYMPHOVASCULAR INVASION: Not identified. LYMPH NODES: Number examined: None. OTHER FINDINGS IN KIDNEY: None. AJCC (2018) PATHOLOGIC STAGE I ([id number]). COLLECTED DATE: 11/19/2016 [facility] REPORT DATE: 11/20/2016 ELECTRONICALLY SIGNED BY: Ladan Manzo M.D. 11/20/2016 - 9:54:24 [facility] SYSTEMMillie
[2016-11-20] MEDS: HYDROmorphone PCA 30 MG/30 ML SYRINGE IV SCH (13:02)
[2016-11-20] MEDS ORDERED: FAMOTIDINE 20 MG TABLET ONE (20:07)
--- NOTE | 2016-11-20 20:12 | Internal Med Progress Note ---
Assessment and Plan (1) Status post nephrectomy Status: Acute Current Visit: Yes (2) Diabetes Status: Chronic Current Visit: Yes Qualifiers: Diabetes mellitus type: type 2 Diabetes mellitus complication status: without complication Diabetes mellitus retirement insulin use: without retirement use Qualified Code(s): E11.9 - Type 2 diabetes mellitus without complications (3) Renal mass Status: Acute Current Visit: Yes Internal Medicine - PN: Subj Interval history: Ms. Alonzo is a 76 year old female with history of DM, dyslipidemia, mild dementia/memory loss, who presented to hospital for a scheduled nephrectomy ( right) because of a large renal cell carcinoma mass confirmed with biopsy. She tolerated the procedure well. Nov 20: She has been up today and doing reasonably well. Renal insufficiency for now post surgical. Expected to improve as the left kidney takes over. Requiring in/out urinary cath today. Exam (Progress Note) - Constitutional Vitals: Period Temp Pulse Resp BP Sys/Calvillo Pulse Ox Last 24 Hr 97.2 F-99.4 F 51-70 17-18 115-130/63-80 95-99 General appearance: no acute distress - Respiratory Respiratory exam: Present: clear to auscultation bilaterally - Cardiovascular Cardiovascular exam: Present: regular rate and rhythm - GI/Abdominal GI/Abdominal exam: Absent: tenderness, soft - Extremities Exam Extremities exam: Absent: edema - Neurological Exam Neurological exam: Present: altered (opiate pain medication) - Psychiatric Psychiatric exam: Present: flat affect - Skin Skin exam: Present: warm, dry Results - Labs CBC & BMP: 11/20/16 05:50 11/20/16 02:57 Quality Measures - VTE Contraindication to Pharmacological VTE Prophylaxis: High Risk of Bleeding
[2016-11-20] MEDS: MEMANTINE 10 MG TABLET PO SCH (21:13)
[2016-11-21 03:33] LABS: Hematocrit 24.6 VOL% (35.7-47.0); Hemoglobin 8.5 GM/DL (12.0-16.0); Immature Granulocytes % 0.3 %; Immature Granulocytes Absolute 0.02 #; Lymphocytes # 1.4 10*3/uL (1.4-4.0); Lymphocytes % 17.3 % (21.3-54.2); Mean Corpuscular HGB Conc 34.6 GM/DL (32-36); Mean Corpuscular Hemoglobin 29 PG (27-34); Mean Corpuscular Volume 83.7 FL (87-102); Mean Platelet Volume 12.6 FL (9.6-12.0); Monocytes # 0.9 10*3/uL (0.11-0.8); Monocytes % 11.3 % (1.7-12.7); Neutrophils # 5.6 10*3/uL (1.4-7.4); Neutrophils % 71.1 % (38.7-73.9); Platelet Count 127 T/CUMM (130-400); Red Blood Count 2.94 MC/CUMM (3.8-5.5); Red Cell Distribution Width 12.8 % (9.3-17.3); White Blood Count 7.8 T/CUMM (4-12)
[2016-11-21 04:12] LABS: Bilirubin,Total 0.5 MG/DL (0.2-1.0); Calcium 8.2 MG/DL (8.5-10.1); Magnesium 1.6 MG/DL (1.8-2.4); Osmolality,Calculated 278.5 MOS/KG (273-304); Phosphorous 3.3 MG/DL (2.5-4.9); Potassium 4.4 MMOL/L (3.5-5.1); Total Protein 5.6 G/DL (6.4-8.3)
[2016-11-21] MEDS ORDERED: MAGNESIUM SULF RIDER 2 GM in PREMIX 1 EACH IV ONE (06:50)
[2016-11-21 07:34] LABS: Hematocrit 23.7 VOL% (35.7-47.0); Hemoglobin 8.1 GM/DL (12.0-16.0)
[2016-11-21] MEDS ORDERED: BISACODYL 10 MG SUPP RECTAL ONE (08:54)
--- NOTE | 2016-11-21 08:54 | Urology Progress Note ---
Urology - PN: Subj Interval history: Patient had a cath last night but she is voiding better today. Her wounds are healing well. She is not ambulating much so we need to get her up and move her. She is tolerating her liquids. I will give her Dulcolax suppository and ambulate her. We will keep the IV. I will stop the Dilaudid DENTAL FRONT OFFICE ASSISTANT and and place her on [place]. Exam - Constitutional Vitals: Period Temp Pulse Resp BP Sys/Calvillo Pulse Ox Last 24 Hr 97.4 F-99.7 F 51-84 18-20 116-140/63-80 95-98 Results - Labs CBC & BMP: 11/21/16 06:57 11/21/16 02:11
[2016-11-21] MEDS: INSULIN REGULAR 100 UNIT/ML SUBCUT SCH ×4 (10:08→21:03)
[2016-11-21] MEDS: SIMVASTATIN 20 MG TABLET PO SCH (10:09)
[2016-11-21] MEDS: ALVIMOPAN 12 MG CAPSULE PO SCH ×2 (10:09→21:12)
[2016-11-21] MEDS: SODIUM CHLORIDE 0.9% 1,000 ML IV SCH (10:10)
[2016-11-21] MEDS: ONDANSETRON 4 MG/2 ML VIAL IV PRN (10:10)
[2016-11-21] MEDS: PANTOPRAZOLE 40 MG TABLET PO SCH (10:10)
[2016-11-21] MEDS: DOCUSATE SODIUM 100 MG CAPSULE PO SCH ×3 (11:38→21:12)
[2016-11-21] MEDS: DONEPEZIL 10 MG TABLET PO SCH (11:38)
[2016-11-21] MEDS: FAMOTIDINE 20 MG TABLET PO SCH ×3 (11:38→21:12)
[2016-11-21] MEDS: MEMANTINE 10 MG TABLET PO SCH ×2 (18:44→21:33)
[2016-11-21] MEDS: diphenhydrAMINE 50 MG/1 ML VIAL IV PRN ×2 (18:45→23:54)
[2016-11-21] MEDS ORDERED: LORazepam 2 MG/1 ML VIAL IV ONE (18:58)
[2016-11-21] MEDS ORDERED: LORazepam 2 MG/1 ML VIAL ONE (19:00)
--- NOTE | 2016-11-21 21:12 | Internal Med Progress Note ---
Assessment and Plan (1) Status post nephrectomy Status: Acute Current Visit: Yes (2) Diabetes Status: Chronic Current Visit: Yes Qualifiers: Diabetes mellitus type: type 2 Diabetes mellitus complication status: without complication Diabetes mellitus mcfp insulin use: without mcfp use Qualified Code(s): E11.9 - Type 2 diabetes mellitus without complications (3) Renal mass Status: Acute Current Visit: Yes Internal Medicine - PN: Subj Interval history: Ms. Alonzo is a 76 year old female with history of DM, dyslipidemia, mild dementia/memory loss, who presented to hospital for a scheduled nephrectomy ( right) because of a large renal cell carcinoma/mass confirmed with biopsy. She tolerated the procedure well. Nov 20: She has been up today and doing reasonably well. Renal insufficiency for now post surgical. Expected to improve as the left kidney takes over. Requiring in/out urinary cath today. Nov 21: She was sitting up in chair today and off of ORGANISATION AND METHODS ANALYST. Will do better after walking around. Exam (Progress Note) - Constitutional Vitals: Period Temp Pulse Resp BP Sys/Calvillo Pulse Ox Last 24 Hr 97.8 F-98.7 F 54-84 16-20 120-156/67-82 95-99 Results - Labs CBC & BMP: 11/21/16 06:57 11/21/16 02:11 Quality Measures - VTE Contraindication to Pharmacological VTE Prophylaxis: High Risk of Bleeding
[2016-11-21] MEDS ORDERED: SODIUM CHLORIDE 0.9% 250 ML IV PRN (22:28)
--- NOTE | 2016-11-21 22:53 | Event Note ---
Spoke with Nurse after noticing that patient has worsening anemia. Odering blood transfusion. Nurse reports that patient is having behavioral difficulties /sundowning. Benzo worsened hyperactivity. Ordered Risperdal PRN and discontinued [place]. Kept low dose Morphine PRN, but she has not been complaining of pain. Discontinued some home meds for now that can be restarted when she is back home. Have started low dose Rocephin to give empiric coverage in case developing UTI status post nephrectomy. Ordering blood cultures as well.
[2016-11-21] MEDS: risperiDONE 0.5 MG TABLET PO PRN (23:47)
[2016-11-22 04:07] LABS: Apearance,Urine CLEAR (Clear); Bacteria,Urine Occasional /HPF (Few); Bilirubin,Urine Negative (Negative); Blood, Urine Small mg/dL (Negative); Glucose,Urine (UA) Negative (Negative); Ketones,Urine Negative (Negative); Nitrite,Urine Negative (Negative); Protein,Urine Negative; Squamous Epithelial Cell,Urine Occasional /HPF (0-10); Urine Color Colorless (Yellow); Urine Specific Gravity 1.003 (1.001-1.035); Urine Urobilinogen < 2.0 EU/DL (0.2-1.0); WBC,Urine <1 /HPF (0-6)
[2016-11-22] MEDS: FAMOTIDINE 20 MG TABLET PO SCH ×2 (08:59→20:54)
[2016-11-22] MEDS: ALVIMOPAN 12 MG CAPSULE PO SCH (08:59)
[2016-11-22] MEDS: DOCUSATE SODIUM 100 MG CAPSULE PO SCH ×2 (08:59→20:54)
[2016-11-22] MEDS: risperiDONE 0.5 MG TABLET PO PRN ×2 (09:01→16:53)
[2016-11-22] MEDS: INSULIN REGULAR 100 UNIT/ML SUBCUT SCH ×4 (09:01→20:50)
[2016-11-22 11:00] LABS: Basophils % 0.1 % (0.0-0.8); Eosinophils % 0.4 % (0.00-10.9)
[2016-11-22 11:05] LABS: Hematocrit 32.3 VOL% (35.7-47.0); Immature Granulocytes % 0.6 %; Immature Granulocytes Absolute 0.04 #; Lymphocytes # 0.9 10*3/uL (1.4-4.0); Lymphocytes % 12.6 % (21.3-54.2); Mean Corpuscular Hemoglobin 28 PG (27-34); Mean Corpuscular Volume 80.3 FL (87-102); Mean Platelet Volume 12.8 FL (9.6-12.0); Monocytes # 0.7 10*3/uL (0.11-0.8); Monocytes % 9.7 % (1.7-12.7); Neutrophils # 5.6 10*3/uL (1.4-7.4); Neutrophils % 76.6 % (38.7-73.9); Platelet Count 112 T/CUMM (130-400); Red Cell Distribution Width 13.7 % (9.3-17.3); White Blood Count 7.2 T/CUMM (4-12)
[2016-11-22 11:11] LABS: Albumin 3.2 G/DL (3.4-5.0); Bilirubin,Total 0.6 MG/DL (0.2-1.0); Calcium 8.4 MG/DL (8.5-10.1); Hemoglobin 11.3 GM/DL (12.0-16.0); Osmolality,Calculated 282.4 MOS/KG (273-304); Potassium 4.1 MMOL/L (3.5-5.1); Red Blood Count 4.02 MC/CUMM (3.8-5.5); Total Protein 5.9 G/DL (6.4-8.3)
[2016-11-22] MEDS: SODIUM CHLORIDE 0.9% 1,000 ML IV SCH (11:59)
--- NOTE | 2016-11-22 12:32 | Urology Progress Note ---
Urology - PN: Subj Interval history: Patient had a sundowning episode last night I believe. Did get 2 units of blood. Her electrolytes and blood counts look okay. I am checking a magnesium level. But I think it is just related to her dementia. She now has a Mat[place] catheter which we will leave for the next day. I will remove her IV because she has a neckline and and I do not want her pull on that out. She will do better at home but due to this Hurricaine, I am going to recommend that we keep her at least through tomorrow. Exam - Constitutional Vitals: Period Temp Pulse Resp BP Sys/Calvillo Pulse Ox Last 24 Hr 97.1 F-99.5 F 55-107 16-20 128-175/68-95 96-99 Results - Labs CBC & BMP: 11/22/16 09:15 11/22/16 09:15
--- NOTE | 2016-11-22 15:15 | Family Practice Progress Note ---
Family Practice - PN: Subj Interval history: Patient was very combative and confused throughout most of the night. She did respond to the Respinol and Ativan. She has been confused this a.m. but staff feels that she is responding much better to the rest at all. I agree with Dr. Steele that this is probably a component of dementia. Dr. Steele remove the IV to prevent patient from pulling the IV out. She has rested at times during the day and seems to be comfortable at present. Her a.m. labs are stable except for creatinine has increased slightly to 3.3. We will continue to monitor this closely and continue present treatment plan Exam (Progress Note) - Constitutional Vitals: Period Temp Pulse Resp BP Sys/Calvillo Pulse Ox Last 24 Hr 97.1 F-99.5 F 55-107 16-20 120-175/68-95 94-99 Results - Labs CBC & BMP: 11/22/16 09:15 11/22/16 09:15 Quality Measures - VTE Contraindication to Pharmacological VTE Prophylaxis: High Risk of Bleeding
[2016-11-22] MEDS: MEMANTINE 10 MG TABLET PO SCH (20:54)
[2016-11-22] MEDS: diphenhydrAMINE 50 MG/1 ML VIAL IV PRN (21:00)
[2016-11-22] MEDS ORDERED: ACETAMINOPHEN 325 MG TABLET PO PRN (21:07)
[2016-11-23 06:30] LABS: Basophils % 0.2 % (0.0-0.8); Eosinophils # 0.2 10*3/uL (0.0-0.87); Eosinophils % 2.9 % (0.00-10.9); Hemoglobin 11.1 GM/DL (12.0-16.0); Immature Granulocytes % 0.3 %; Immature Granulocytes Absolute 0.02 #; Lymphocytes # 1.2 10*3/uL (1.4-4.0); Lymphocytes % 20.2 % (21.3-54.2); Mean Corpuscular HGB Conc 34.7 GM/DL (32-36); Mean Corpuscular Hemoglobin 28 PG (27-34); Mean Corpuscular Volume 79.8 FL (87-102); Mean Platelet Volume 12.2 FL (9.6-12.0); Monocytes # 0.7 10*3/uL (0.11-0.8); Neutrophils # 3.9 10*3/uL (1.4-7.4); Neutrophils % 65.4 % (38.7-73.9); Platelet Count 126 T/CUMM (130-400); Red Blood Count 4.01 MC/CUMM (3.8-5.5); Red Cell Distribution Width 13.6 % (9.3-17.3); White Blood Count 5.9 T/CUMM (4-12)
[2016-11-23 07:02] LABS: Albumin 2.9 G/DL (3.4-5.0); Bilirubin,Total 0.9 MG/DL (0.2-1.0); Calcium 8.9 MG/DL (8.5-10.1); Osmolality,Calculated 284.3 MOS/KG (273-304); Potassium 4.2 MMOL/L (3.5-5.1); Total Protein 5.8 G/DL (6.4-8.3)
[2016-11-23] MEDS: SODIUM CHLORIDE 0.9% 1,000 ML IV SCH (07:26)
[2016-11-23] MEDS: INSULIN REGULAR 100 UNIT/ML SUBCUT SCH ×2 (07:55→12:30)
[2016-11-23] MEDS: FAMOTIDINE 20 MG TABLET PO SCH (08:04)
[2016-11-23] MEDS: DOCUSATE SODIUM 100 MG CAPSULE PO SCH (08:04)
--- NOTE | 2016-11-23 12:36 | Urology Progress Note ---
Urology - PN: Subj Interval history: Continues to improve. She is cleared up a good bit. I think she needs to go home. Her wounds are healing well. I will see her in 2 weeks. I recommend Tylenol for her pain at this point no narcotics. Exam - Constitutional Vitals: Period Temp Pulse Resp BP Sys/Calvillo Pulse Ox Last 24 Hr 97.0 F-98.2 F 48-77 16-19 114-150/71-88 92-98 Results - Labs CBC & BMP: 11/23/16 06:08 11/23/16 06:08
[2016-11-23] MEDS ORDERED: MAGNESIUM HYDROXIDE SUSP 30 ML UDCUP PO PRN (15:28)
[2016-11-23 15:34] VITALS: BP 135/85
--- NOTE | 2016-11-23 16:09 | Discharge Summary ---
Hospital Course - Hospital Course Hospital Course: Ms. Alonzo is a 76 year old female with history of DM, dyslipidemia, mild dementia/memory loss, who presented to hospital for a scheduled nephrectomy ( right) because of a large renal cell carcinoma mass confirmed with biopsy. hospital course -patient was admitted to hospital lab and x-ray studies obtained. Patient was seen by Dr. Jose Angel Steele who performed a right nephrectomy for treatment of renal cell carcinoma. Patient tolerated the surgery well. She did develop mental confusion from her dementia. She responded to appropriate therapy. Her creatinines have increased slightly following surgery. Creatinine was at 3.4 at time of discharge . This will need to be followed on outpatient basis. Patient is stable at time of discharge and is mentally and physically doing well. Will discharge to home care and arrange follow-up with Dr. tSeele in [address] Sanderson in 10 days. Will have patient call or return to the emergency room if condition worsens or new problems develop Diagnosis - Discharge Diagnosis (1) Right renal cell carcinoma Status: Acute (2) Status post nephrectomy Status: Acute (3) Type 2 diabetes mellitus Status: Acute (4) Hyperlipidemia Status: Acute (5) Dementia Status: Acute Specialty Discharge - Follow Up or Referrals Follow up with: Marti Sanderson DO [Primary Care Provider] - (Have her keep her routine follow-up appointment with Dr. Sanderson) Jose Angel Steele MD [Physician] - 2 Weeks Discharge Plan - Discharge Data Disposition: Disch To Home/Self Care Condition at Discharge: Stable Discharge Diet: diabetic diet Activity: resume usual activities as tolerated Weight Bearing at Discharge: weight bear as tolerated Contact your physician if you experience:: fever over 101, Nausea/Vomiting, Shortness of breath - Discharge Medications New traMADol TAB [Ultram] 50 mg PO Q6H PRN #40 tablet PRN Reason: Pain Mild (1-3) Continue Donepezil [Aricept] 10 mg PO DAILY Simvastatin [Zocor] 20 mg PO DAILY Memantine [Namenda] 10 mg PO BEDTIME Omeprazole [Prilosec] 20 mg PO DAILY Simethicone [Bicarsim] 80 mg PO DIRECTED PRN PRN Reason: Pain Sitagliptin Phosphate [Januvia] 25 mg PO DAILY - Follow Up or Referral Follow Up: Jose Angel Steele MD [Physician] - 2 Weeks Marti Sanderson DO [Primary Care Provider] - (Have her keep her routine follow-up appointment with Dr. Sanderson) - Forms/Instructions Additional Discharge Instructions: I will write a prescription for Ultram Exam - Constitutional Vitals: Period Temp Pulse Resp BP Sys/Calvillo Pulse Ox Last 24 Hr 97.0 F-98.5 F 48-77 16-19 114-150/71-88 92-98 General appearance: no acute distress - Head Head exam: Present: normal inspection - Eye Pupils: Present: JOY - ENT ENT exam: Present: normal exam - Neck Neck exam: Present: normal inspection - Respiratory Respiratory exam: Present: clear to auscultation bilaterally - Cardiovascular Cardiovascular exam: Present: irregular rhythm - GI/Abdominal GI/Abdominal exam: Present: tenderness (Some tenderness around incision site) - Extremities Exam Extremities exam: Present: normal inspection - Back Exam Back exam: Present: normal inspection - Neurological Exam Neurological exam: Present: alert, altered (Patient has known dementia) - Psychiatric Psychiatric exam: Present: flat affect, other (Patient has known dementia) - Skin Skin exam: Present: normal color Discharge Results Procedures and tests throughout hospitalization: Pending Orders 11/21/16 23:41 Blood Culture Routine Labs on day of discharge: Labs from last 24 hours 11/23/16 11/23/16 11/23/16 11:24 06:21 06:08 WBC RBC Hgb Hct MCV MCH MCHC RDW Plt Count MPV Neut % (Auto) Lymph % (Auto) [place] % (Auto) Eos % (Auto) Baso % (Auto) Neut # (Auto) Lymph # (Auto) [place] # (Auto) Eos # (Auto) Baso # (Auto) Immature Gran % Nucleated RBC % Immature Gran # Nucleated RBCs # Immature Plt Fraction Sodium 141 Potassium 4.2 Chloride 108 H Carbon Dioxide 25 Anion Gap 12.2 BUN 24 H Creatinine 3.40 H GFR Calculation 15 BUN/Creatinine Ratio 7.00 Glucose 90 POC Glucose 246 H 113 H Calculated Osmolality 284.3 Calcium 8.9 Total Bilirubin 0.90 AST 26 ALT 34 Alkaline Phosphatase 63 Total Protein 5.8 L Albumin 2.9 L Globulin 2.9 Albumin/Globulin Ratio 1.0 L 11/23/16 11/22/16 11/22/16 06:08 19:45 14:56 WBC 5.9 RBC 4.01 Hgb 11.1 L Hct 32.0 L MCV 79.8 L MCH 28 MCHC 34.7 RDW 13.6 Plt Count 126 L MPV 12.2 H Neut % (Auto) 65.4 Lymph % (Auto) 20.2 L [place] % (Auto) 11.0 Eos % (Auto) 2.9 Baso % (Auto) 0.2 Neut # (Auto) 3.9 Lymph # (Auto) 1.2 L [place] # (Auto) 0.7 Eos # (Auto) 0.2 Baso # (Auto) 0.0 Immature Gran % 0.3 Nucleated RBC % 0.0 Immature Gran # 0.02 Nucleated RBCs # 0.00 Immature Plt Fraction 0.0 Sodium Potassium Chloride Carbon Dioxide Anion Gap BUN Creatinine GFR Calculation BUN/Creatinine Ratio Glucose POC Glucose 116 H 178 H Calculated Osmolality Calcium Total Bilirubin AST ALT Alkaline Phosphatase Total Protein Albumin Globulin Albumin/Globulin Ratio Preliminary micro results at discharge 11/21/16 23:41 Blood Culture - Preliminary Blood No growth at 1 day 11/21/16 23:41 Blood Culture - Preliminary Blood No growth at 1 day DS: Provider Date of admission: 11/19/16 15:29 Primary care physician: Marti Sanderson DO Attending physician on admission: Marti Sanderson DO Consults: 11/18/16 22:51 Consult to Case Mgmt/Social Srvs [CONS] Routine Reason for Case Mgmt/Social Srvs: Discharge Planning 11/18/16 23:02 Consult to Physician [CONS] Routine Comment: partial nephrectomy Consulting Provider: Jose Angel Steele Consult Notification Comment: Dr. Steele aware Discharging clinician: Lincoln Shah DO
[2016-11-23] MEDS ORDERED: traMADol 50 MG TABLET PO PRN (16:15)
--- NOTE | 2016-11-24 12:35 | Physician Query Form ---
CLICK EDIT DOCUMENT TO SELECT QUERY ANSWER --> OK --> SIGN Graciela Cho RN, CCDS Certified Clinical Site Coordinator W) [phone] (f) [phone] [email or web address]: Make your selection(s) from the choices in EACH section by typing an "x" and enter comments in the comment section. Please use your independent medical judgment in providing your response. This request does not imply that any particular answer is desired or expected. CLINICAL INDICATORS: (Providers should not edit this section) The medical record indicates that the patient was admitted for a nephrectomy, HH dropped to 8.1/23.7 and the patient was given 2 units of blood.---Estimated blood loss: other (900 cc) Based on the above, could you clarify which of the following conditions you are evaluating, treating, and/or monitoring? (x ) Blood loss anemia (x ) acute ( ) chronic ( ) acute on chronic ( ) Acute blood loss anemia on baseline chronic anemia ( x) Acute blood loss anemia as a complication of a procedure ( ) Iron deficiency anemia not associated with blood loss ( x) Dilutional anemia due to IV fluids ( ) Anemia due to chemotherapy ( ) Anemia due to neoplastic disease ( ) Anemia due to chronic kidney disease ( ) Pernicious anemia ( ) Aplastic anemia ( ) Hemolytic anemia ( ) immune ( ) non-immune - please specify cause: ( ) Anemia due to other condition, please specify: ( ) Clinically unable to determine COMMENTS: PLEASE ALSO DOCUMENT RESPONSE IN PROGRESS NOTES AND/OR DISCHARGE SUMMARY Use of terms such as suspected, likely, or probable (associated with a specific diagnosis that is being evaluated, monitored, or treated as if it exists) are acceptable and can be restated in the discharge summary if not ruled out. MTDD
--- NOTE | 2016-11-24 12:36 | Physician Query Form ---
CLICK EDIT DOCUMENT TO SELECT QUERY ANSWER --> OK --> SIGN Graciela Cho RN, CCDS Certified Clinical Pad Machine Operator W) [phone] (f) [phone] [email or web address] PROVIDERS: Make your selection(s) from the choices in EACH section by typing an "x" and enter comments in the comment section. Please use your independent medical judgment in providing your response. This request does not imply that any particular answer is desired or expected. CLINICAL INDICATORS: (Providers should not edit this section) The medical record indicates that the patient was admitted for a nephrectomy, Creatinine of 2.60 on the 5th that has increased to 3.40 on the 8th, GFR of 21 that has decreased to 15 on the 8th and the patient was given blood/ IVFs. Clarify which of the following most accurately represents the patient's renal status: ( ) Acute kidney injury (non-traumatic) ( ) Acute renal failure ( ) Acute renal failure with underlying Chronic Kidney Disease (CKD) - please provide stage below (x ) Acute renal failure with pathological renal lesion ( ) Acute renal failure with necrosis ( ) tubular ( ) medullary ( ) cortical ( ) CKD - please provide stage below ( ) End Stage Renal Disease ( ) Acute interstitial nephritis ( ) Hepatorenal syndrome ( x) Other, please specify: surgical nephrectomy with post surgical renal insufficiency ( ) Clinically unable to determine Chronic Kidney Disease Stages Source: [employer] Kid[employer] ( ) Stage I (eGFR > or = 90) ( ) Stage II (eGFR 60 - 89) ( ) Stage III (eGFR 30 - 59) ( ) Stage IV (eGFR 15 - 29) ( ) Stage V (eGFR < 15 or dialysis) COMMENTS: PLEASE ALSO DOCUMENT RESPONSE IN PROGRESS NOTES AND/OR DISCHARGE SUMMARY Use of terms such as suspected, likely, or probable (associated with a specific diagnosis that is being evaluated, monitored, or treated as if it exists) are acceptable and can be restated in the discharge summary if not ruled out. MTDD
== END 2016-11-23 17:54 | disposition home or self-care (01) | DRG 657 ==
LOC: N.OR 05:35 → N.SDSINP 05:41 → N.5E 14:03
PROVIDERS: ADMIT Internal Medicine; ATTEND Internal Medicine